=== PATIENT | female | born 1995 | race African-American/Black ===

== ENCOUNTER 2016-08-13 23:25 | Emergency (ER) | payer SELFPAY ==
[2016-08-13 23:40] VITALS: BP 158/89; BMI 28.3
--- NOTE | 2016-08-14 00:05 | DR.GENAD ---
HPI - PCP Primary Care Physician: NFD - Complaint/Symptoms Chief Complaint:: " My throat hurts on my left side and when I swollow it hurts my ear. Been hurting for about 2wks now it seems like its gettin worst" - Nurses notes reviewed Nurses Notes Review: Yes - Source History Provided: Patient - Mode of Arrival Mode of Arrival: Ambulatory - Timing Onset of Chief Complaint: 07/30/16 Came on: Gradually - Duration Duration: Constant Duration: Days PMH - PMH Past Medical History: Yes Past Medical History: Hypertension Past Surgical History: No - Family History History of Family Medical Conditions: Yes Family Medical History: Diabetes Mellitus, Cancer, Coronary Artery Disease, Hypertension - Social History Alcohol Use: None Do you use any recreational Drugs:: No Lives With: Family Lives Where: Home - infectious screening Have you traveled outside the country in the last 6 months?: No PE - Vital Signs Vitals: Temperature 98.6 F Pulse Rate 89 Respiratory Rate 18 Blood Pressure [Left Arm] 146/91 Blood Pressure 158/89 O2 Sat by Pulse Oximetry 100 ROR - Labs Reviewed Laboratory: Streptococcus Screen Negative (NEGATIVE) 08/13/16 23:47 - Diagnosis Discharge Problem: Pharyngitis, Cervical adenitis - Discharge Plan Condition: Stable Prescriptions: Acetaminophen W/ Codeine [Tylenol/Codeine #3 300-30 mg] 1 tab PO Q4-6H PRN #12 tab PRN Reason: Pain Amoxicillin [Amoxil 875 mg] 875 mg PO BID #20 tab Ibuprofen [MOTRIN TAB 600 MG *] 600 mg PO TID PRN #20 tab PRN Reason: Pain/Inflammation - Follow ups/Referrals Follow ups/Referrals: NFD,None [Primary Care Provider] - 3 days - Instructions Instructions: Lymphadenopathy, Pharyngitis Additional Instructions: RETURN TO ED IF WORSE.
[2016-08-14] MEDS ORDERED: TYLENOL #3 TAB (W/CODEINE) PO ONE ×2 (00:44→00:48)
[2016-08-14] MEDS ORDERED: AMOXIL CAP 500 MG PO ONE ×2 (00:45→00:49)
[2016-08-14] MEDS ORDERED: MOTRIN TAB 600 MG PO ONE ×2 (00:46→00:49)
== END 2016-08-14 01:06 | disposition home or self-care (01) ==
LOC: ER 23:25
DX: J02.9 Acute pharyngitis, unspecified (principal); I88.8 Other nonspecific lymphadenitis
CPT/HCPCS: 87070; 87880; 99282

== ENCOUNTER 2017-03-14 21:58 | Emergency (ER) | payer SELFPAY ==
[2017-03-14 22:07] VITALS: BP 138/89; BMI 29.0
[2017-03-14] MEDS ORDERED: NS IRRIGATION 1000 ML 1,000 ML ONE (22:33)
--- NOTE | 2017-03-14 23:32 | DR.EARACHE ---
HPI - Time Seen Time seen: 22:45 - HPI Comment HPI Comment: PATIENT IS HAVING DECREASE HEARING IN BOTH EARS MORE IN LEFT EAR. NO FEVER. PAIN IN RIGHT EAR THAT STARTED TODAY. NO FEVER OR DRAINAGE. NO TRAUMA TO EAR NOTED. - Complaint/Symptoms Chief Complaint Doctor Comments: PAIN BOTH EARS WITH DECREASE HEARING NOTED THIS EVENING. Chief Complaint:: PT C/O BARELY HEARING OUT OF BILATERAL EARS. FEEL FULL. Self Treatment fo Chief Complaint: EAR WAX REMOVER - Nurses notes reviewed Nurses Notes Review: Yes - Source History Provided: Patient - Mode of arrival Mode of Arrival: Ambulatory - Timing Onset of Chief Complaint: 03/13/17 Came on: Suddenly - Duration Duration: Constant Duration: Hours - Location Location: Bilateral - Severity Severity: Moderate - Context Context: Spontaneously Developed - Associated signs and symptoms Associated signs and symptoms: Runny nose. denies: Fever, Chills, Discharge, Sore throat, Toothache PMH - PMH Past Medical History: Yes Past Medical History: Hypertension Past Surgical History: No - Family History History of Family Medical Conditions: Yes Family Medical History: [place] - Social History Does patient currently use any type of tobacco product: No Have you used tobacco products in the last 12 months: No Type of Tobacco Use: None Does any household member use tobacco: No Alcohol Use: None Do you use any recreational Drugs:: No Lives With: Family - infectious screening In the last 2 months have you had wt loss of >10#?: NO Have you had fever, night sweats or hemotysis?: No Have you traveled outside the country in the last 6 months?: No Isolation: Standard ROS - Review of Systems Constitutional: Weakness, Fatigue. negative: Chills, Fever Eyes: No Symptoms Reported. negative: Eye Pain, Discharge ENTM: Ear Pain, Hearing Loss (BOTH EARS.) Respiratoy: Non-Productive Cough. negative: Productive Cough, Short of Breath, Wheezing, Hemoptysis Cardiovascular: No Symptoms Reported. negative: Chest Pain Gastrointestinal/Abdominal: negative: Abdominal Pain, Constipation, Diarrhea, Nausea Genitourinary: No Symptoms Reported. negative: Dysuria, Frequency, Hematuria Neurological: No Symptoms Reported, Headache, Weakness, Dizziness Musculoskeletal: Muscle Pain Integumentary: No Symptoms Reported Hematologic/Lymphatic: No Symptoms Reported Endocrine: No Symptoms Reported All Other Systems: Reviewed and Negative PE - Vitals Vitals: Temperature 98.3 F Pulse Rate 73 Respiratory Rate 18 Blood Pressure [Left Arm] 146/91 Blood Pressure 138/89 O2 Sat by Pulse Oximetry 99 - General Limitations: No Limitations General Appearance: Alert - Head Head Exam: Normal Inspection - Eyes Eye exam: Normal Appearance - ENT ENT Exam: Normal Oropharynx (THRO), Normal External Ear Exam. negative: TM's Normal Bilaterally (TM NOT VISUALIZE.) External Ear Exam: Normal External Inspection TM/Canal Exam: Bilateral Cerumen Impaction, Bilateral Canal Tenderness (EAR CANAL SWOLLEN. TM NOT SISUALIZE.) Mouth Exam: Normal Inspection Teeth Exam: Normal Inspection Throat Exam: Normal Inspection - Neck Neck Exam Focused: Normal Inspection - Chest Chest Inspection: Symmetric Chest Wall Rise - Respiratory Respiratory Exam: Normal Lung Sounds Bilat Respiratory Exam: Bilateral Clear to Auscultation - Cardiovascular Cardiovascular Exam: Regular Rate, Normal Rhythm, Normal Heart Sounds - Abdominal Exam Abdominal Exam: Normal Bowel Sounds, Soft. negative: Distention - Extremities Extremities Exam: Normal Inspection - Back Back Exam: Normal Inspection - Neurological Neurological Exam: Alert, Oriented X3 - Psychiatric Psychiatric Exam: Normal Affect, Normal Mood - Skin Skin Exam: Normal Color MDM - Differential Diagnosis Tympanic membrane: Otitis media Referred pain: Pharyngitis, Sinusitis Course - Treatment Treatment: SEE ORDERS. - Education/Counseling Education/Counseling: Patient, Family, Education Educated On: Diagnosis, Needs for Follow Up - Diagnosis Discharge Problem: Wax in ear Otitis media Qualifiers: Otitis media type: suppurative Chronicity: acute Laterality: bilateral Recurrence: not specified as recurrent Spontaneous tympanic membrane rupture: without spontaneous rupture Qualified Code(s): H66.003 - Acute suppurative otitis media without spontaneous rupture of ear drum, bilateral - Discharge Plan Disposition: 01 HOME, SELF-CARE Condition: Stable Prescriptions: Amoxicillin [Amoxil 875 mg] 875 mg PO TID #30 tab Ibuprofen [MOTRIN TAB 800 MG *] 800 mg PO Q8H PRN #30 tab PRN Reason: Pain/Inflammation - Follow ups/Referrals Follow ups/Referrals: NFD,None [Primary Care Provider] - 3 days JUWAN MATHEW [STAFF PHYSICIAN] - 3 days - Instructions Instructions: Otitis Media, Adult, [id number] Additional Instructions: RETURN TO ED IF WORSE. YOU ALSO HAVE EAR WAX.
[2017-03-14] MEDS ORDERED: MOTRIN TAB 800 MG PO ONE ×2 (23:47→23:49)
[2017-03-14] MEDS ORDERED: AMOXIL CAP 500 MG PO ONE ×2 (23:47→23:48)
[2017-03-14] MEDS ORDERED: MOTRIN TAB 600 MG PO ONE (23:49)
== END 2017-03-14 23:57 | disposition home or self-care (01) ==
LOC: ER 21:58
DX: H66.003 Acute suppurative otitis media without spontaneous rupture of ear drum, bilateral (principal); H61.23 Impacted cerumen, bilateral
CPT/HCPCS: 99282

== ENCOUNTER 2017-08-14 05:40 | Emergency (ER) | payer SELFPAY ==
[2017-08-14 05:55] VITALS: BP 164/106; BMI 30.3
--- NOTE | 2017-08-14 06:11 | DR.GENAD ---
HPI - PCP Primary Care Physician: NFMaria Del Carmen - HPI Comment HPI Comment: GETTING WORSE. NO FEVER OR DYSURIA. - Complaint/Symptoms Chief Complaint Doctors Comments: LOWER ABDOMEN AND LOWER BACK PAIN TIMES ONE DAY. Chief Complaint:: LOWER ABDOMINAL PAIN LOW BACK PAIN ONSET YESTERDAY. - Nurses notes reviewed Nurses Notes Review: Yes - Source History Provided: Patient - Mode of Arrival Mode of Arrival: Ambulatory - Timing Onset of Chief Complaint: 08/13/17 Came on: Suddenly - Duration Duration: Constant Duration: Days - Severity Severity: Moderate PMH - PMH Past Medical History: Yes Past Medical History: Hypertension Past Surgical History: No - Family History History of Family Medical Conditions: Yes Family Medical History: [place] - Social History Does patient currently use any type of tobacco product: No Have you used tobacco products in the last 12 months: No Type of Tobacco Use: None Does any household member use tobacco: No Alcohol Use: None Do you use any recreational Drugs:: No Lives With: Family Lives Where: Home - infectious screening In the last 2 months have you had wt loss of >10#?: NO Have you had fever, night sweats or hemotysis?: No Have you traveled outside the country in the last 6 months?: No Isolation: Standard ROS - Review of Systems Constitutional: No Symptoms Reported Eyes: No Symptoms Reported ENTM: No Symptoms Reported Respiratoy: No Symptoms Reported Cardiovascular: No Symptoms Reported Gastrointestinal/Abdominal: No Symptoms Reported Genitourinary: No Symptoms Reported Neurological: No Symptoms Reported Musculoskeletal: No Symptoms Reported Integumentary: No Symptoms Reported Hematologic/Lymphatic: No Symptoms Reported Endocrine: No Symptoms Reported All Other Systems: Reviewed and Negative PE - Vital Signs Vitals: Temperature 98.5 F Pulse Rate 89 Respiratory Rate 18 Blood Pressure [Left Arm] 146/91 Blood Pressure 164/106 O2 Sat by Pulse Oximetry 99 - General Limitations: No Limitations General Appearance: Alert - Head Head Exam: Normal Inspection - Eyes Eye exam: Normal Appearance - ENT ENT Exam: Normal External Ear Exam External Ear Exam: Normal External Inspection TM/Canal Exam: Bilateral Normal Nose Exam: Normal Nose Exam Mouth Exam: Normal Inspection Throat Exam: Normal Inspection - Neck Neck Exam: Trachea Midline - Chest Chest Inspection: Symmetric Chest Wall Rise - Respiratory Respiratory Exam: Normal Lung Sounds Bilat Respiratory Exam: Bilateral Clear to Auscultation - Cardiovascular Cardiovascular Exam: Regular Rate, Normal Rhythm, Normal Heart Sounds - Abdominal Exam Abdominal Exam: Normal Bowel Sounds, Soft, Tenderness Abdominal Tenderness: LUQ, Suprapubic, Moderate - Extremities Extremities Exam: Tenderness - Neurologic Neurological Exam: Alert, Oriented X3 - Psychiatric Psychiatric Exam: Normal Affect, Normal Mood - Skin Skin Exam: Normal Color MDM - Differential Diagnosis Differential Diagnosis: LOWER ABDOMINAL PAIN, LOWER BACK PAIN Course - Treatment Treatment: SEE ORDERS. - Education/Counseling Education/Counseling: Patient, Education Educated On: Diagnosis, Needs for Follow Up ROR - Labs Reviewed Laboratory Results Reviewed?: Yes Result Diagrams: 08/14/17 06:25 08/14/17 06:25 Laboratory: WBC 3.8 X10^3/uL (3.6-10.0) 08/14/17 06:25 RBC 4.37 X10^6/uL (3.5-5.4) 08/14/17 06:25 Hgb 10.7 g/dL (12.0-16.0) L 08/14/17 06:25 Hct 33.2 % (36.0-47.0) L 08/14/17 06:25 MCV 76.0 fL (80.0-100.0) L 08/14/17 06:25 MCH 24.5 pg (27.0-34.0) L 08/14/17 06:25 MCHC 32.3 g/dL (33.0-35.0) L 08/14/17 06:25 RDW 17.9 % (11.6-16.5) H 08/14/17 06:25 Plt Count 159 X10^3/uL (150.0-450.0) 08/14/17 06:25 Plt Count Comment Adequate (ADEQUATE) 08/14/17 06:25 MPV 10.6 fL (7.4-11.0) 08/14/17 06:25 Neut % (Auto) 42.8 % (42.0-75.0) 08/14/17 06:25 Lymph % (Auto) 45.5 % (21.0-51.0) 08/14/17 06:25 Bowie % (Auto) 9.9 % (0.0-13.0) 08/14/17 06:25 Eos % (Auto) 1.5 % (0.9-2.9) 08/14/17 06:25 Baso % (Auto) 0.3 % (0.2-1.0) 08/14/17 06:25 Neut # (Auto) 1.6 x10^3/uL (2.2-4.8) L 08/14/17 06:25 Lymph # (Auto) 1.7 X10^3/uL (1.3-2.9) 08/14/17 06:25 Bowie # (Auto) 0.4 x10^3/uL (0.3-0.8) 08/14/17 06:25 Eos # (Auto) 0.1 x10^3/uL (0.0-0.2) 08/14/17 06:25 Baso # (Auto) 0.0 X10^3/uL (0.0-0.1) 08/14/17 06:25 Absolute Nucleated RBC 0.1 /100WBC 08/14/17 06:25 Plt Morphology Comment Normal (NORMAL) 08/14/17 06:25 RBC Morphology Normal (NORMAL) 08/14/17 06:25 Sodium 140 mmol/L (136-145) 08/14/17 06:25 Corrected Sodium TNP 08/14/17 06:25 Potassium 3.8 mmol/L (3.5-5.1) 08/14/17 06:25 Chloride 107 mmol/L (98-107) 08/14/17 06:25 Carbon Dioxide 22.9 mmol/L (21-32) 08/14/17 06:25 BUN 11 mg/dL (7-18) 08/14/17 06:25 Creatinine 0.70 mg/dL (0.55-1.02) 08/14/17 06:25 Est GFR (MDRD) Af Amer > 60 (>60) 08/14/17 06:25 Est GFR (MDRD) Non-Af > 60 (>60) 08/14/17 06:25 Glucose 103 mg/dL (65-99) H 08/14/17 06:25 Calcium 8.0 mg/dL (8.5-10.1) L 08/14/17 06:25 Corrected Calcium TNP 08/14/17 06:25 Total Bilirubin 0.20 mg/dL (0.2-1.0) 08/14/17 06:25 AST 15 Units/L (15-37) 08/14/17 06:25 ALT 19 Units/L (12-78) 08/14/17 06:25 Alkaline Phosphatase 49 Units/L (46-116) 08/14/17 06:25 Total Protein 8.4 g/dL (6.4-8.2) H 08/14/17 06:25 Albumin 3.4 g/dL (3.4-5.0) 08/14/17 06:25 Globulin 5.0 g/dL (2.5-4.5) H 08/14/17 06:25 Albumin/Globulin Ratio 0.7 Ratio (1.1-2.1) L 08/14/17 06:25 HCG, Qual Negative <10 mIU/mL 08/14/17 06:25 Specimen Type Clean catch urine 08/14/17 06:21 Urine Color Yellow (YELLOW) 08/14/17 06:21 Urine Appearance Slightly hazy (CLEAR) 08/14/17 06:21 Urine pH 6.0 (5.0 - 8.0) 08/14/17 06:21 Ur Specific [place] 1.015 (1.000-1.030) 08/14/17 06:21 Urine Protein Negative (NEGATIVE) 08/14/17 06:21 Urine Glucose (UA) Negative (NEGATIVE) 08/14/17 06:21 Urine Ketones Negative (NEGATIVE) 08/14/17 06:21 Urine Occult Blood 3+ (NEGATIVE) 08/14/17 06:21 Urine Nitrite Negative (NEGATIVE) 08/14/17 06:21 Urine Bilirubin Negative (NEGATIVE) 08/14/17 06:21 Urine Urobilinogen 1+ (NORMAL) 08/14/17 06:21 Ur Leukocyte Esterase 1+ (NEGATIVE) 08/14/17 06:21 Urine RBC 3-5 /HPF (NONE SEEN) 08/14/17 06:21 Urine WBC 0-2 /HPF (NONE SEEN) 08/14/17 06:21 Ur Squamous Epith Cells Moderate /HPF (NEGATIVE) 08/14/17 06:21 Urine Bacteria Trace /HPF (NEGATIVE) 08/14/17 06:21 Urine Mucus Few /HPF (NEGATIVE) 08/14/17 06:21 Ur Culture Indicated? No/not indicated 08/14/17 06:21 - XRAY XRAY Interpreted by: Radiologist XRAY Findings: report discuss with patient. - Diagnosis Discharge Problem: Abdominal pain Qualifiers: Abdominal location: lower abdomen, unspecified Qualified Code(s): R10.30 - Lower abdominal pain, unspecified - Discharge Plan Disposition: 01 HOME, SELF-CARE Condition: Stable Prescriptions: Famotidine [Pepcid Tab 20 mg] 40 mg PO DAILY #30 tab Ibuprofen [MOTRIN TAB 800 MG *] 800 mg PO Q8H PRN #30 tab PRN Reason: Pain/Inflammation - Follow ups/Referrals Follow ups/Referrals: NFD,None [Primary Care Provider] - 3 days - Instructions Instructions: Abdominal Pain, Adult, [id number] Additional Instructions: RETURN TO ED IF WORSE.
[2017-08-14 06:32] LABS: BILIRUBIN,URINE NEGATIVE (NEGATIVE); BLOOD/HEMOGLOBIN,URINE 3+ (NEGATIVE); GLUCOSE, URINE NEGATIVE (NEGATIVE); KETONES,URINE NEGATIVE (NEGATIVE); LEUKOCYTE ESTERASE ,URINE 1+ (NEGATIVE); NITRITES,URINE NEGATIVE (NEGATIVE); PROTEIN,URINE NEGATIVE (NEGATIVE); UROBILINOGEN,URINE 1+ (NORMAL)
[2017-08-14 06:34] LABS: BASOPHILS % (AUTO) 0.3 % (0.2-1.0); EOSINOPHILS # (AUTO) 0.1 x10^3/uL (0.0-0.2); EOSINOPHILS % (AUTO) 1.5 % (0.9-2.9); HEMATOCRIT 33.2 % (36.0-47.0); HEMOGLOBIN 10.7 g/dL (12.0-16.0); LYMPHOCYTES # (AUTO) 1.7 X10^3/uL (1.3-2.9); LYMPHOCYTES % (AUTO) 45.5 % (21.0-51.0); MEAN CORPUSCULAR HEMOGLOBIN 24.5 pg (27.0-34.0); MEAN CORPUSCULAR HGB CONC 32.3 g/dL (33.0-35.0); MEAN PLATELET VOLUME 10.6 fL (7.4-11.0); MONOCYTES # (AUTO) 0.4 x10^3/uL (0.3-0.8); MONOCYTES % (AUTO) 9.9 % (0.0-13.0); NEUTROPHILS # (AUTO) 1.6 x10^3/uL (2.2-4.8); NEUTROPHILS % (AUTO) 42.8 % (42.0-75.0); PLATELET COUNT 159 X10^3/uL (150.0-450.0); RED BLOOD COUNT 4.37 X10^6/uL (3.5-5.4); RED CELL DISTRIBUTION WIDTH 17.9 % (11.6-16.5); WHITE BLOOD COUNT 3.8 X10^3/uL (3.6-10.0)
[2017-08-14 06:38] LABS: APPEARANCE,URINE SLIGHTLY HAZY (CLEAR); COLOR,URINE YELLOW (YELLOW)
[2017-08-14 06:39] LABS: BACTERIA,URINE TRACE /HPF (NEGATIVE); MUCUS,URINE FEW /HPF (NEGATIVE); SQUAMOUS EPITHELIAL CELL,UR MODERATE /HPF (NEGATIVE)
[2017-08-14 06:42] LABS: ALANINE AMINOTRANSFERASE 19 Units/L (12-78); ALBUMIN 3.4 g/dL (3.4-5.0); ALKALINE PHOSPHATASE 49 Units/L (46-116); ASPARTATE AMINO TRANSFERASE 15 Units/L (15-37); BLOOD UREA NITROGEN 11 mg/dL (7-18); CARBON DIOXIDE 22.9 mmol/L (21-32); CHLORIDE 107 mmol/L (98-107); SODIUM 140 mmol/L (136-145); TOTAL PROTEIN 8.4 g/dL (6.4-8.2); eGFR BLACK RACES > 60 (>60); eGFR NON BLACK RACES > 60 (>60)
[2017-08-14 06:46] LABS: SERUM PREGNANCY TEST, QUAL NEGATIVE <10 mIU/mL
[2017-08-14 06:56] LABS: PLATELET MORPHOLOGY COMMENT NORMAL (NORMAL)
[2017-08-14] MEDS ORDERED: TORADOL 60 MG VIAL IM ONE (07:02)
[2017-08-14] MEDS ORDERED: TORADOL 60 MG VIAL ONE (07:05)
--- NOTE | 2017-08-14 07:23 | RAD ---
HISTORY: Lower abdominal pain Study: Flat and upright abdomen, PA chest Comparison: None Findings: The heart is within normal limits in size. The lungs are clear. The abdominal gas pattern is nonspeci fic and nonobstructive. No pneumoperitoneum is identified. No abnormal masses or abnormal calcificati ons are identified. IMPRESSION: Unremarkable acute abdominal series Reported By:
== END 2017-08-14 07:42 | disposition home or self-care (01) ==
LOC: ER 05:40
DX: R10.84 Generalized abdominal pain (principal)
CPT/HCPCS: 36415; 74022; 80053; 81001; 84703; 85025; 96372; 99282; 99283; J1885

== ENCOUNTER 2017-09-06 20:54 | Emergency (ER) | payer SELFPAY ==
[2017-09-06 21:03] VITALS: BP 131/78; BMI 30.3
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
[2017-09-07] MEDS ORDERED: TORADOL 60 MG VIAL IM ONE (00:44)
[2017-09-07] MEDS ORDERED: TORADOL 60 MG VIAL ONE (00:56)
== END 2017-09-07 01:05 | disposition home or self-care (01) ==
LOC: ER 20:54
DX: M54.6 Pain in thoracic spine (principal); Z04.1 Encounter for examination and observation following transport accident; V49.9XXA Car occupant (driver) (passenger) injured in unspecified traffic accident, initial encounter
CPT/HCPCS: 72072; 72100; 96372; 99282; 99283; J1885